=== PATIENT | female | born 1965 ===

== ENCOUNTER 2025-04-30 12:00 | Day surgery (SDC) | payer OTHER ==
[2025-04-29 09:47] LABS: URINE APPEARANCE Clear; URINE BILIRRUBIN Negative (NEGATIVE); URINE BLOOD Small; URINE COLOR Yellow; URINE GLUCOSE Negative (NEGATIVE); URINE KETONE Negative (NEGATIVE); URINE LEUKOCYTE Small; URINE NITRATE Negative; URINE PROTEIN Negative (NEGATIVE); URINE UROBILINOGEN 1.0 E.U./dl
[2025-04-29 09:50] LABS: BASO % 0.6 % (0.1-1.2); EOS # 0.13 (0.04-0.54); EOS % 1.9 % (0.7-7.0); LYMPH # 2.50 (1.18-3.74); LYMPH % 37.3 % (19.3-53.1); MEAN PLATELET VOLUME 10.10 fl (9.4-12.4); MONO # 0.33 (0.24-0.82); MONO % 4.9 % (4.7-12.5); NEUT # 3.69 (1.56-6.13); NEUT % 55.0 % (34.0-71.1); RED CELL DISTRIBUTION WIDTH 13.3 % (11.6-14.4)
[2025-04-29 09:51] LABS: URINE BACTERIA 453.6 uL (0.0-1933); URINE EPITHELIAL CELLS 17.3 uL (0.0-38.8); URINE RBC 34.0 uL (0.0-20.8); URINE WBC 18.4 uL (0.0-23.2)
[2025-04-29 09:54] LABS: URINE CAST 0.58 uL (0.0-1.40)
[2025-04-29 10:13] VITALS: BP 122/84
[2025-04-29 10:25] LABS: INR 0.99
[2025-04-29 10:30] LABS: ALT/SGPT 27.0 U/L (12-78); AST/SGOT 15.0 U/L (15-37); BILIRUBIN TOTAL 1.4 mg/dL (0.3-1.2); BUN CREA RATIO 31.0 (7.0-25.0); CREATININE SERUM 0.61 mg/dL (0.55-1.02); GFR 100.74; GLOBULINA 3.9 G/DL (2.4-3.5); GLUCOSE FASTING 89.0 mg/dL (65-100); OSMOLALITY SERUM 287.0 MOSM/KG (275-295)
[~2025-04-30] VITALS: Ht 154.9 cm; Wt 73.5 kg
[~2025-04-30 12:00] MED LIST: [UNRECOGNIZED DRUG - REMARK]
[2025-04-30] MEDS ORDERED: CEFAZOLIN SODIUM 1,000 MG VIAL ONE (12:35)
[2025-04-30] MEDS ORDERED: KETOROLAC TROMETHAMINE 30 MG VIAL ONE (13:38)
== END 2025-04-30 17:00 | disposition home or self-care (01) ==
LOC: CIR.AMB 12:00
PROVIDERS: ATTEND Orthopaedic Surgery
DX: M65.832 Other synovitis and tenosynovitis, left forearm (principal); M25.422 Effusion, left elbow